=== PATIENT | female | born 1995 | race Caucasian/White ===

== ENCOUNTER 2019-11-29 10:41 | Emergency (ER) | payer OTHER ==
[~2019-11-29] VITALS: Ht 162.6 cm; Wt 62.6 kg
--- NOTE | 2019-11-29 10:53 | NUR ---
bibself with BUE SWELLING, PAIN X 1 WEEK S/P STRENUOUS EXERCISE. pt able to move bue. awaiting for md [place]
--- NOTE | 2019-11-29 10:58 | NUR ---
seen and evaluated by
[2019-11-29 11:22] LABS: BASOPHILS % (AUTO) 0.7 % (0.0-2.0); EOSINOPHILS % (AUTO) 1.2 % (0.0-6.0); HEMATOCRIT 38 % (33-45); HEMOGLOBIN 13.1 g/dL (11.5-14.8); LYMPHOCYTES # (AUTO) 1.4 /CMM (0.8-4.8); LYMPHOCYTES % (AUTO) 29.2 % (20.0-44.0); MEAN CORPUSCULAR HGB CONC 34 g/dl (31.0-36.0); MEAN CORPUSCULAR VOLUME 91 fL (82-100); MONOCYTES # (AUTO) 0.2 /CMM (0.1-1.30); MONOCYTES % (AUTO) 4.7 % (2.0-12.0); NEUTROPHILS % (AUTO) 64.2 % (43.0-81.0); PLATELET COUNT (AUTO) 269 /CMM (150-450); RED BLOOD CELL COUNT(AUTO) 4.21 MIL/uL (4.0-5.2); WHITE BLOOD COUNT (AUTO) 4.7 K/uL (4.3-11.0)
--- NOTE | 2019-11-29 11:24 | NUR ---
pt unable to collect urine at this time
[2019-11-29] MEDS ORDERED: IV NS 0.9% 1,000 ML IV ONE (11:30)
--- NOTE | 2019-11-29 11:44 | NUR ---
URINE COLLECTED AND SENT TO LAB
[2019-11-29 11:50] LABS: CALCIUM, SERUM 9.1 mg/dL (8.5-10.1); CREATININE 0.8 mg/dL (0.6-1.3)
[2019-11-29 12:02] LABS: APPEARANCE,URINE Clear (CLEAR); BILIRUBIN,URINE Negative (NEGATIVE); BLOOD, URINE Trace-intact Ery/uL (NEGATIVE); COLOR,URINE Yellow (YELLOW); KETONES,URINE 15 (NEGATIVE); LEUKOCYTE ESTERASE ,URINE Small (NEGATIVE); NITRITE, URINE Negative (NEGATIVE); PROTEIN,URINE Negative (NEGATIVE); UGLUCOSE Negative (NEGATIVE); UROBILINOGEN,URINE 0.2 EU/dL (0.2)
[2019-11-29 12:12] LABS: ALBUMIN 3.8 g/dL (3.4-5.0); BILIRUBIN,DIRECT 0.1 mg/dL (0.0-0.2); BILIRUBIN,TOTAL 0.4 mg/dL (0.2-1.0)
[2019-11-29 13:24] LABS: BACTERIA,URINE None seen /HPF (None Seen); RBC,URINE 0-2 /HPF (0-2); SQUAMOUS EPITHELIAL CELL,UR Few /HPF (None Seen); WBC,URINE 0-2 /HPF (0-3)
[2019-11-29 14:21] VITALS: BP 132/68
== END 2019-11-29 14:22 | disposition home or self-care (01) ==
LOC: ER 10:49
DX: M79.18 Myalgia, other site (principal); R79.89 Other specified abnormal findings of blood chemistry; R74.8 Abnormal levels of other serum enzymes; R00.0 Tachycardia, unspecified
CPT/HCPCS: 36415; 80048; 80076; 81001; 82550; 84702; 85025; 93005 ×2; 96360; 99284; J7030; 81000-TC